=== PATIENT | male | born 1935 | race Caucasian/White ===

== ENCOUNTER 2021-07-10 10:36 | Inpatient (IN) | payer MEDICARE, BC ==
[2021-07-10 11:02] LABS: #Eosinphils 0.1 thou/uL (0.0-0.7); #Lymphocytes 5.3 thou/uL (1.20-3.40); #Monocytes 0.7 thou/uL (0.11-0.59); #Neutrophils 7.1 thou/uL (1.40-6.50); %Basophils 0.2 % (0.0-1.0); %Eosinophils 0.6 % (0.0-10.0); %Monocytes 5.2 % (0.0-10.0); Hemoglobin 13.6 g/dL (14.0-18.0); Mean Corpuscular HGB CONC 32.5 g/dL (32.0-36.0); Mean Corpuscular Hemoglobin 29.7 pg (27.0-31.0); Mean Corpuscular Volume 91.3 fL (78.0-98.0); Mean Platelet Volume 7.4 fL (7.4-10.4); Platelet Count 153 thou/uL (130-400); RBC Distribution Width 12.7 % (11.5-14.5); Red Blood Cell (RBC) Count 4.57 mill/uL (4.70-6.10); White Blood Cell (WBC) Count 13.2 thou/uL (4.8-10.8)
[2021-07-10 11:13] LABS: PTT 26.4 sec (22.9-36.1); Prothrombin Time 13.6 sec (12.0-14.7)
[2021-07-10 11:26] LABS: ALT (SGPT) 20 U/L (8-55); AST (SGOT) 14 U/L (5-34); Albumin 4.1 g/dL (3.4-4.8); Alkaline Phosphatase 34 U/L (40-110); Anion Gap 12 mmol/L (10-20); BUN (Urea Nitrogen) 18 mg/dL (8.4-25.7); Calc. Creatinine Clearance 0 mL/min (70-130); Calcium 9.4 mg/dL (7.8-10.44); Carbon Dioxide 25 mmol/L (23-31); Chloride 101 mmol/L (98-107); Globulin 2.2 g/dL (2.4-3.5); Glucose 129 mg/dL (83-110); Potassium 4.4 mmol/L (3.5-5.1); Protein, Total 6.3 g/dL (5.8-8.1); Sodium 134 mmol/L (136-145)
[2021-07-10] MEDS ORDERED: Ondansetron PF 4 MG/2 ML Vial ONE (12:54)
[2021-07-10] MEDS ORDERED: Labetalol HCl 100 MG/20 ML VIAL SLOW IVP PRN (14:52)
[2021-07-10] MEDS ORDERED: Acetaminophen 325 MG TAB PO PRN (14:52)
[2021-07-10] MEDS ORDERED: Communication Order-Pharmacy FS SCH ×2 (14:52→17:30)
[2021-07-10 16:07] LABS: SARS-CoV-2 NAA Rapid Test Not Detected (NotDetected)
[2021-07-10] MEDS ORDERED: Melatonin 3 MG TAB PO PRN (22:05)
[2021-07-11] MEDS: Rivastigmine 1.5 MG CAP PO SCH (21:30)
[2021-07-11] MEDS: Melatonin 3 MG TAB PO SCH (21:30)
[2021-07-11 22:27] LABS: Red Blood Cell (RBC) Count 4.52 mill/uL (4.70-6.10); White Blood Cell (WBC) Count 13.3 thou/uL (4.8-10.8)
[2021-07-11 22:28] LABS: #Basophils 0.1 thou/uL (0.0-0.2); #Eosinphils 0.1 thou/uL (0.0-0.7); #Lymphocytes 4.9 thou/uL (1.20-3.40); #Monocytes 0.7 thou/uL (0.11-0.59); #Neutrophils 7.5 thou/uL (1.40-6.50); %Basophils 0.5 % (0.0-1.0); %Eosinophils 0.7 % (0.0-10.0); %Lymphocytes 36.9 % (21.0-51.0); %Monocytes 5.4 % (0.0-10.0); %Neutrophils 56.4 % (42.0-75.0); Hemoglobin 13.4 g/dL (14.0-18.0); Mean Corpuscular HGB CONC 32.4 g/dL (32.0-36.0); Mean Corpuscular Hemoglobin 29.6 pg (27.0-31.0); Mean Corpuscular Volume 91.6 fL (78.0-98.0); Mean Platelet Volume 6.9 fL (7.4-10.4); Platelet Count 159 thou/uL (130-400)
[2021-07-11 22:58] LABS: Anion Gap 13 mmol/L (10-20); BUN (Urea Nitrogen) 16 mg/dL (8.4-25.7); Calc. Creatinine Clearance 77 mL/min (70-130); Calcium 8.5 mg/dL (7.8-10.44); Carbon Dioxide 25 mmol/L (23-31); Chloride 102 mmol/L (98-107); Glucose 99 mg/dL (83-110); Potassium 4.1 mmol/L (3.5-5.1); Sodium 136 mmol/L (136-145)
[2021-07-12 06:34] VITALS: BMI 25.2
[2021-07-12] MEDS: Rivastigmine 1.5 MG CAP PO SCH ×2 (09:01→17:54)
[2021-07-12 11:18] LABS: Anion Gap 10 mmol/L (10-20); BUN (Urea Nitrogen) 15 mg/dL (8.4-25.7); Calc. Creatinine Clearance 82 mL/min (70-130); Calcium 8.6 mg/dL (7.8-10.44); Carbon Dioxide 27 mmol/L (23-31); Cardiac Risk 2.4 (Less than 4.5); Chloride 103 mmol/L (98-107); Cholesterol 122 mg/dl (< 200 Desired); Glucose 96 mg/dL (83-110); HDL Cholesterol 51 mg/dL (>60 Neg Risk); LDL Cholesterol, Calculated 58 mg/dL; Potassium 3.8 mmol/L (3.5-5.1); Sodium 136 mmol/L (136-145); Triglycerides 65 mg/dL (Less than 150)
[2021-07-12 11:19] LABS: Hemoglobin A1c 5.5 % (4.0-6.0)
[2021-07-12] MEDS ORDERED: Meloxicam 15 MG TAB PO PRN (12:04)
[2021-07-12] MEDS ORDERED: Aspirin 81 mg Enteric Coated Tablet PO SCH (12:15)
[2021-07-12] MEDS ORDERED: SIMETHICONE 125 MG PO SCH (13:00)
[2021-07-12 13:09] LABS: Hemoglobin 13.1 g/dL (14.0-18.0); Mean Corpuscular Volume 91.6 fL (78.0-98.0); Red Blood Cell (RBC) Count 4.62 mill/uL (4.70-6.10); White Blood Cell (WBC) Count 12.7 thou/uL (4.8-10.8)
[2021-07-12 13:10] LABS: MDiff Complete? YES; Manual Diff?? YES; Mean Corpuscular Hemoglobin 28.4 pg (27.0-31.0); Mean Platelet Volume 7.3 fL (7.4-10.4); Platelet Count 154 thou/uL (130-400); RBC Distribution Width 12.9 % (11.5-14.5)
[2021-07-12 13:11] LABS: Lymphocytes 42 % (21-51); Monocytes 2 % (0-10); Neutrophil 56 % (42-75); Platelet Morphology Comment Appears Adequate; RBC Morphology Normal
[2021-07-12] MEDS: Simethicone Chewable 80 MG TAB PO SCH ×3 (14:04→21:09)
[2021-07-12] MEDS: Famotidine 20 MG TAB PO SCH (21:08)
[2021-07-12] MEDS: Melatonin 3 MG TAB PO SCH (21:09)
[2021-07-12] MEDS: Carvedilol 3.125 MG TAB PO SCH (21:09)
[2021-07-13 06:11] LABS: #Basophils 0.1 thou/uL (0.0-0.2); #Eosinphils 0.2 thou/uL (0.0-0.7); #Monocytes 0.7 thou/uL (0.11-0.59); #Neutrophils 6.5 thou/uL (1.40-6.50); %Basophils 0.8 % (0.0-1.0); %Eosinophils 1.3 % (0.0-10.0); %Lymphocytes 40.5 % (21.0-51.0); %Monocytes 5.2 % (0.0-10.0); %Neutrophils 52.2 % (42.0-75.0); Hemoglobin 12.8 g/dL (14.0-18.0); Mean Corpuscular HGB CONC 32.2 g/dL (32.0-36.0); Mean Corpuscular Hemoglobin 29.5 pg (27.0-31.0); Mean Corpuscular Volume 91.8 fL (78.0-98.0); Mean Platelet Volume 7.2 fL (7.4-10.4); Platelet Count 135 thou/uL (130-400); RBC Distribution Width 12.8 % (11.5-14.5); Red Blood Cell (RBC) Count 4.32 mill/uL (4.70-6.10); White Blood Cell (WBC) Count 12.3 thou/uL (4.8-10.8)
[2021-07-13] MEDS: Rivastigmine 1.5 MG CAP PO SCH ×2 (08:30→18:34)
[2021-07-13] MEDS: Carvedilol 3.125 MG TAB PO SCH (08:31)
[2021-07-13] MEDS: Simethicone Chewable 80 MG TAB PO SCH ×3 (08:31→18:35)
[2021-07-13] MEDS: Famotidine 20 MG TAB PO SCH (08:31)
[2021-07-13] MEDS ORDERED: Meloxicam 15 MG TAB PO SCH (09:00)
[2021-07-13] MEDS ORDERED: Cholestyramine/Aspartame 4 gm Packet PO SCH (09:00)
[2021-07-13] MEDS ORDERED: Simvastatin 10 MG TAB PO SCH (09:00)
[2021-07-13] MEDS ORDERED: Aspirin 81 mg Enteric Coated Tablet PO SCH (09:00)
[2021-07-13] MEDS ORDERED: Losartan 25 MG TAB PO SCH (09:00)
[2021-07-13 09:04] LABS: Anion Gap 11 mmol/L (10-20); BUN (Urea Nitrogen) 14 mg/dL (8.4-25.7); Calc. Creatinine Clearance 58 mL/min (70-130); Calcium 8.8 mg/dL (7.8-10.44); Carbon Dioxide 29 mmol/L (23-31); Chloride 99 mmol/L (98-107); Glucose 101 mg/dL (83-110); Sodium 135 mmol/L (136-145)
[2021-07-13] MEDS ORDERED: Clopidogrel Bisulfate 75 MG TAB PO SCH (13:04)
[2021-07-13 15:41] VITALS: BP 108/55; TEMP 97.7
[2021-07-14] MEDS ORDERED: Clopidogrel Bisulfate 75 MG TAB PO SCH (09:00)
== END 2021-07-13 19:07 | disposition home health service (06) | DRG 62 ==
LOC: ERS 10:36 → ERHOLD 13:24 → 3SE 07-11 22:13
PROVIDERS: ADMIT Family Medicine; ATTEND Family Medicine
DX: I63.9 Cerebral infarction, unspecified (principal); E87.1 Hypo-osmolality and hyponatremia; Z20.822 Contact with and (suspected) exposure to COVID-19; R47.01 Aphasia; R29.706 NIHSS score 6; I10 Essential (primary) hypertension; E78.5 Hyperlipidemia, unspecified; I25.10 Atherosclerotic heart disease of native coronary artery without angina pectoris; G20 Parkinson's disease; K21.9 Gastro-esophageal reflux disease without esophagitis; D50.9 Iron deficiency anemia, unspecified; Z96.651 Presence of right artificial knee joint; R13.10 Dysphagia, unspecified; Z96.0 Presence of urogenital implants; Z53.20 Procedure and treatment not carried out because of patient's decision for unspecified reasons; D49.0 Neoplasm of unspecified behavior of digestive system; D69.6 Thrombocytopenia, unspecified; M79.10 Myalgia, unspecified site; Z95.1 Presence of aortocoronary bypass graft; Z87.891 Personal history of nicotine dependence; Z79.899 Other long term (current) drug therapy; Z83.3 Family history of diabetes mellitus; Z80.0 Family history of malignant neoplasm of digestive organs
CPT/HCPCS: 36415; 36416; 70450; 70496; 70498; 71045; 80048; 80053; 80061; 83036; 84443; 84484; 85025; 85610; 85730; 93005; 93306; 94760; J2405; J2997; U0002

== ENCOUNTER 2022-07-20 15:08 | Outpatient (CLI) | payer MEDICARE, BC | END 2022-07-20 15:09 | disposition home or self-care (01) | LOC: BICRAD 15:08 | PROVIDERS: ATTEND Student in an Organized Health Care Education/Training Program | DX: R10.9 Unspecified abdominal pain (principal) | CPT/HCPCS: 74018 ==

== ENCOUNTER 2022-07-29 13:52 | Outpatient (CLI) | payer MEDICARE, BC | END 2022-07-29 13:53 | disposition home or self-care (01) | LOC: BICCT 13:52 | PROVIDERS: ATTEND Student in an Organized Health Care Education/Training Program | DX: K43.9 Ventral hernia without obstruction or gangrene (principal); K57.10 Diverticulosis of small intestine without perforation or abscess without bleeding; J98.4 Other disorders of lung; K59.00 Constipation, unspecified | CPT/HCPCS: 74177; 82565 ==